=== PATIENT | female | born 1980 ===

== ENCOUNTER 2023-10-28 11:14 | Inpatient (IN) | payer OTHER ==
[~2023-10-28] VITALS: Ht 170.2 cm; Wt 69.9 kg
[2023-10-28 12:05] VITALS: BP 115/76
[2023-10-28] MEDS ORDERED: WELLBUTRIN XL150 M1 PO (12:05)
[2023-10-28] MEDS ORDERED: COZAAR25 MG PO (12:05)
[2023-10-28 12:10] VITALS: BP 130/88
[2023-11-03] MEDS ORDERED: CEFOXITIN SODIUM 2,000 MG VIAL IV ONE (12:11)
[2023-11-03] MEDS ORDERED: THROMBIN,HU/FIBRINOGEN/CALCIUM 10 ML SYRINGE TOP ONE (14:38)
[2023-11-03] MEDS ORDERED: VISTASEAL DUAL APPICATOR 1 EACH APPL TOP ONE (14:38)
[2023-11-03] MEDS ORDERED: POVIDONE-IODINE 118 ML BOTT TOP ONE (15:07)
[2023-11-03] MEDS ORDERED: hydrALAZINE HCL 20 MG VIAL ONE (16:07)
[2023-11-03] MEDS ORDERED: ZEPBOUND12.5 MG/0. (16:36)
[2023-11-03] MEDS ORDERED: AZELASTIN-FLUTI23 GM (16:36)
[2023-11-03] MEDS ORDERED: MORPHINE SULFATE 4 MG/ML CARTRIDGE IV PRN (18:30)
[2023-11-03] MEDS ORDERED: KETOROLAC TROMETHAMINE 30 MG VIAL IV PRN (18:30)
[2023-11-03] MEDS ORDERED: ONDANSETRON HCL 2 MG/ML VIAL IV PRN (18:30)
[2023-11-03] MEDS ORDERED: RINGERS SOLUTION,LACTATED 1,000 ML IV SCH (18:45)
[2023-11-03 20:29] LABS: HEMOGLOBIN 13.7 g/dL (12.0-15.00); MEAN CELL VOLUME 86.4 fL (80.00-100.00); MEAN CORPUSCULAR HGB CONC 33.5 g/dl (32.0-36.0); PLATELET COUNT 317 K/uL (150-450); RED BLOOD COUNT 4.74 M/uL (4.00-6.00); RED CELL DISTRIBUTION WIDTH 14.7 % (11.5-14.5)
[2023-11-03 20:30] VITALS: BP 115/76
[2023-11-03 20:47] VITALS: BP 115/76
[2023-11-04] VITALS: BP 107/68
[2023-11-04 03:40] LABS: HEMATOCRIT 37.3 % (36.0-45.00); HEMOGLOBIN 12.7 g/dL (12.0-15.00); MEAN CELL VOLUME 85.2 fL (80.00-100.00); MEAN CORPUSCULAR HEMOGLOBIN 28.9 pg (27.00-32.0); MEAN CORPUSCULAR HGB CONC 33.9 g/dl (32.0-36.0); PLATELET COUNT 271 K/uL (150-450); RED BLOOD COUNT 4.38 M/uL (4.00-6.00); RED CELL DISTRIBUTION WIDTH 14.6 % (11.5-14.5)
[2023-11-04 04:12] LABS: BILIRUBIN TOTAL 1.01 mg/dL (0.3-1.2); CALCIUM 8.4 mg/dL (8.5-10.1); CREATININE SERUM 0.52 mg/dL (0.55-1.02); GFR 128.1; GLOBULINA 2.6 G/DL (2.4-3.5); POTASSIUM 4.3 mEq/L (3.5-5.1); TOTAL PROTEIN 5.6 gm/dL (6.4-8.2)
[2023-11-04 08:35] VITALS: BP 111/67
[2023-11-04] MEDS ORDERED: BUPROPION HCL 150 MG TABLET.SA PO SCH (09:00)
[2023-11-04] MEDS ORDERED: LOSARTAN POTASSIUM 25 MG TABLET PO SCH (09:00)
== END 2023-11-04 09:57 | disposition home or self-care (01) | DRG 743 ==
LOC: O/R 11-03 07:17 → SURH 11-03 11:15 → OB/GYN 11-03 15:56 → SURH 11-03 22:15 → OB/GYN 11-04 09:57
PROVIDERS: ADMIT Obstetrics & Gynecology Gynecologic Oncology; ATTEND Obstetrics & Gynecology Gynecologic Oncology
PROC: 0UT74ZZ Resection of Bilateral Fallopian Tubes, Percutaneous Endoscopic Approach (ICD-10-PCS; 2023-11-03)
PROC: 0USG4ZZ Reposition Vagina, Percutaneous Endoscopic Approach (ICD-10-PCS; 2023-11-03)
PROC: 0UT94ZZ Resection of Uterus, Percutaneous Endoscopic Approach (ICD-10-PCS; principal; 2023-11-03 22:15)
DX: D25.1 Intramural leiomyoma of uterus (principal); N72 Inflammatory disease of cervix uteri; N85.01 Benign endometrial hyperplasia; Z20.822 Contact with and (suspected) exposure to COVID-19